=== PATIENT | female | born 2000 | race Caucasian/White ===

== ENCOUNTER 2021-03-04 23:38 | Emergency (ER) | payer MEDICAID ==
[~2021-03-04] VITALS: Ht 162.6 cm; Wt 81.2 kg
[2021-03-05 01:48] LABS: Albumin 3.7 g/dL (3.4-5.0); BUN/Creatinine Ratio 21.6; Calcium 9.2 mg/dL (8.5-10.1); Potassium 4.2 mmol/L (3.5-5.1)
[2021-03-05 01:51] LABS: Bilirubin, Total 0.3 mg/dL (0.2-1.0); Total Protein 7.6 g/dL (6.4-8.2)
[2021-03-05 02:00] VITALS: BP 140/99
[2021-03-05 02:04] LABS: Basophils # (auto) 0 10 ^3/uL (0-0.2); Basophils % (auto) 0.3 % (0.0-2.0); Eosinophils # (auto) 0 10 ^3/uL (0-0.8); Hemoglobin 13.3 g/dL (12.2-16.2); Lymphocytes # (auto) 1.1 10 ^3/uL (0.4-5.4); Lymphocytes % (auto) 14.8 % (10.0-50.0); Mean Corpuscular Hemoglobin 28.1 pg (28.0-32.0); Mean Corpuscular Hgb Conc. 33.2 g/dL (32.0-36.0); Mean Corpuscular Volume 84.5 fL (80.0-100.0); Monocytes # (auto) 0.3 10 ^3/uL (0-1.3); Monocytes % (auto) 3.5 % (0.0-12.0); Neutrophils # (auto) 6.1 10 ^3/uL (1.6-8.6); Neutrophils % (auto) 81.4 % (37.0-80.0); Red Blood Cells 4.73 10^6/uL (4.0-5.20); Red Cell Distribution Width 13.7 % (11.8-14.3); White Blood Cell 7.5 10^3/uL (4.4-10.8)
[2021-03-05] MEDS ORDERED: IBUPROFEN 600 MG TAB PO ONE (02:30)
[2021-03-05] MEDS ORDERED: IBUPROFEN 800 MG TAB PO ONE (02:30)
[2021-03-05] MEDS ORDERED: ACETAMINOPHEN 500 MG TAB PO ONE (02:30)
[2021-03-05] MEDS ORDERED: PROPARACAINE HCL 0.5% OPTH(EYE) SOL 15ML OP ONE (03:00)
[2021-03-05] MEDS ORDERED: TETRACAINE HCL 0.5% OPTH(EYE) SOLN 4ML EACHEYE ONE (03:15)
== END 2021-03-05 03:50 | disposition home or self-care (01) ==
LOC: ER 23:38
DX: S05.02XA Injury of conjunctiva and corneal abrasion without foreign body, left eye, initial encounter (principal); S05.01XA Injury of conjunctiva and corneal abrasion without foreign body, right eye, initial encounter; X58.XXXA Exposure to other specified factors, initial encounter; Y93.89 Activity, other specified; Y92.89 Other specified places as the place of occurrence of the external cause; Y99.8 Other external cause status
CPT/HCPCS: 36415; 70450; 80053; 85025

== ENCOUNTER → 2021-03-16 | Emergency (ER) | payer MEDICAID ==
[~2021-03-16] VITALS: Ht 162.6 cm; Wt 78.5 kg
[2021-03-16 15:18] VITALS: BP 137/94
== END | disposition left against medical advice (07) ==
LOC: ER 14:39
DX: U07.1 COVID-19 (principal); R42 Dizziness and giddiness; R06.02 Shortness of breath; R05.9 Cough, unspecified; R51.9 Headache, unspecified; R11.2 Nausea with vomiting, unspecified; Z53.21 Procedure and treatment not carried out due to patient leaving prior to being seen by health care provider

== ENCOUNTER 2023-12-10 11:50 | Emergency (ER) | payer MEDICAID ==
[~2023-12-10] VITALS: Ht 157.5 cm; Wt 80.5 kg
[2023-12-10 12:44] VITALS: BP 135/77; PULSE 69; RESP 16; TEMP 97.9; O2SAT 96
[2023-12-10 13:39] LABS: Hepatitis B Surface Antibody Positive (Negative)
[2023-12-10 13:51] LABS: Hepatitis B Surface Antigen Negative (Negative)
== END 2023-12-10 13:08 | disposition home or self-care (01) ==
LOC: ER 11:50
DX: S60.012A Contusion of left thumb without damage to nail, initial encounter (principal); Z77.21 Contact with and (suspected) exposure to potentially hazardous body fluids; Z20.5 Contact with and (suspected) exposure to viral hepatitis; W46.0XXA Contact with hypodermic needle, initial encounter; Y93.89 Activity, other specified; Y92.89 Other specified places as the place of occurrence of the external cause; Y99.8 Other external cause status
CPT/HCPCS: 36415; 86703; 86706; 86803; 87340

== ENCOUNTER 2024-03-15 08:43 | Emergency (ER) | payer MEDICAID ==
[~2024-03-15] VITALS: Ht 157.5 cm; Wt 77.3 kg
[2024-03-15 08:59] VITALS: BP 137/91; PULSE 74; RESP 16; O2SAT 98
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
== END 2024-03-15 10:24 | disposition home or self-care (01) ==
LOC: ER 08:43
DX: R51.9 Headache, unspecified (principal); R11.0 Nausea; Z04.1 Encounter for examination and observation following transport accident; V89.2XXA Person injured in unspecified motor-vehicle accident, traffic, initial encounter; Y93.89 Activity, other specified; Y92.89 Other specified places as the place of occurrence of the external cause; Y99.8 Other external cause status
CPT/HCPCS: 70450

== ENCOUNTER 2024-08-22 18:50 | Emergency (ER) | payer MEDICAID ==
[~2024-08-22] VITALS: Ht 157.5 cm; Wt 71.0 kg
[2024-08-22] MEDS: LORazepam 2MG/ML-1ML VIAL IV ONE (19:25)
[2024-08-22] MEDS: ONDANSETRON HCL 4 MG/2 ML VIAL IV ONE (19:25)
[2024-08-22] MEDS: SODIUM CHLORIDE 0.9% 1,000 ML IV ONE (19:26)
--- NOTE | 2024-08-22 20:02 | ED.PDOC ---
HPI Comments PT STATES SHE FEELS VERY SHAKY, ANXIOUS, AND DIZZY AFTER DRINKING A CELSIUS DRINK AND THEN PRE WORK OUT AT 3 PM NAUSEA DENIES CHEST PAIN, REPORTS PALPITATIONS AND SHORTNESS OF BREATH. Chief Complaint: Anxiety Time Seen by MD: 18:58 Primary Care Provider: MARVIN Reviewed Notes: Women'S Swim Coach Notes, Medications, Allergies Allergies: Coded Allergies: NO KNOWN ALLERGIES (Unverified , 03/05/21) Information Source: Patient Mode of Arrival: Wheelchair Past Medical History PAST MEDICAL HISTORY: Denies Surgical History: Denies all surgeries RETAIL SALES ASSOCIATE BILINGUAL History: No Pertinent RETAIL SALES ASSOCIATE BILINGUAL History Family History Family History: Unknown Social History Smoker: Non-Smoker Alcohol: Denies ETOH Use Drugs: Denies Drug Use Lives In: Home Constitutional: denies: chills, diaphoresis, fatigue, fever, malaise, sweats, weakness, others Respiratory: reports: shortness of breath; denies: cough, hemoptysis, orthopnea, SOB at rest, SOB with excertion, stridor, wheezing, others Cardiovascular: reports: dizzy spells, lightheadedness; denies: chest pain, diaphoresis, Dyspnea on exertion, edema, irregular heart beat, left arm pain, pa lpitations, PND, syncope, others Gastrointestinal: denies: abdomen distended, abdominal pain, blood streaked bowels, constipated, diarrhea, dysphagia, difficulty swallowing, hematemesis, melena, nausea, poor appetite, poor fluid intake, rectal bleeding, rectal pain, vomiting, others Genitourinary: denies: abnormal vagina bleeding, burning, dyspareunia, dysuria, flank pain, frequency, hematuria, incontinence, pain, , vagina discharge, urgency, others Neurological: denies: dizziness, fainting, headache, left sided numbness, left sided weakness, numbness, paresthesia, pre-existing deficit, right sided numbness, right sided weakness, seizure, speech problems, tingling, tremors, weakness, others Musculoskeletal: denies: back pain, gout, joint pain, joint swelling, muscle pain, muscle stiffness, neck pain, others Integumetry: denies: bruises, change in color, change in hair/nails, dryness, laceration, lesions, lumps, rash, wounds, others Allergic/Immunocompromised: denies: Difficulty Healing, Frequent Infections, Hives, Itching, others Hematologic/Lymphatic: denies: anemia, blood clots, easy bleeding, easy bruising, swollen glands, others Endocrine: denies: excessive hunger, excessive sweating, excessive thirst, excessive urination, flushing, intolerance to cold, intolerance to heat, unexplained weight gain, unexplained weight loss, others Psychiatric: denies: anxiety, bipolar disorder, depression, hopeless, panic disorder, schizophrenia, sleepless, suicidal, others Physical Exam General Appearance: No Apparent Distress, Normal HEENT: Pharynx Normal Neck: Full Range of Motion, Non-Tender Respiratory: Lungs Clear, No Accessory Muscle Use, No Respiratory Distress, Normal Breath Sounds Cardiovascular: No Edema, No JVD, No Murmur, No Gallop, Normal Peripheral Pulses, Tachycardia Breast Exam: Deferred Gastrointestinal: Non Tender, Soft Genitalia: Deferred Pelvic: Deferred Rectal: Deferred Extremities: Normal capillary refill, Normal inspection, Normal range of motion, Non-tender, No pedal edema Musculoskeletal : Apperance: Normal Neurologic: Alert, brineyard supervisor II-XII nml as Tested, No Motor Deficits, Normal Affect, Normal Mood, No Sensory Deficits Cerebellar Function: Normal Reflexes: Normal Skin: Dry, Normal Color, Warm Lymphatic: No Adenopathy Was a procedure done? Was a procedure done?: No CP Differential Dx Differential Diagnosis: Hyperventilation, PSVT, Sinus Tachycardia X-Ray, Labs, Meds, VS Vital Signs Date Time Temp Pulse Resp B/P (MAP) Pulse Ox O2 Delivery O2 Flow Rate FiO2 08/22/24 18:55 98.0 107 24 149/93 (111) 100 98.0 Current Medications Medications (Trade) Dose Ordered Sig/Shyann Route Start Time Stop Time Status Last Admin Sodium Chloride 1,000 ml @ 1,000 mls/hr Q1H ONCE IV 08/22/24 19:00 08/22/24 19:59 08/22/24 19:26 Ondansetron HCl (Zofran) 4 mg ONCE ONCE IV 08/22/24 19:00 08/22/24 19:04 DC 08/22/24 19:25 Lorazepam (Ativan Inj) 0.5 mg ONCE ONCE IV 08/22/24 19:15 08/22/24 19:16 DC 08/22/24 19:25 X-Ray, Labs, Meds, VS Comment PATIENT GIVEN 1 L OF FLUIDS 0.5 MG OF ATIVAN AND 4 MG OF ZOFRAN. HEART RATE UNDER 100 PATIENT REPORTS IMPROVEMENT SHE IS REQUESTING DISCHARGE AT THIS TIME. ADVISED TO AVOID PRE WORKOUT AND C AT THE SAME TIME ADVISED TO CONSIDER A NATURAL PRE WORKOUT WITHOUT THE HIGH DOSE AMOUNT OF CAFFEINE. ADVISED TO REST INCREASE P.O. FLUIDS WITH ELECTROLYTES. ADVISED TO FOLLOW UP WITH HER PCP IN 2- 3 DAYS NECESSARY. ER RETURN PRECAUTIONS GIVEN PATIENT INDICATES UNDERSTANDING AND AGREES WITH DISCHARGE PLAN OF CARE. Time of 1ST Reevaluation: 18:30 Reevaluation 1ST: Unchanged Time of 2ND Reevaluation: 19:59 Reevaluation 2ND: Improved Patient Education/Counseling: Diagnosis, Treatment, Prognosis, Need For Follow Up Family Education/Counseling: Diagnosis, Treatment, Prognosis, Need For Follow Up Departure 1 Departure Time of Disposition: 20:00 Impression: Primary Impression: Adverse effect of caffeine, initial encounter Disposition: 01 HOME / SELF CARE / HOMELESS Condition: Stable Discharged With: Relative (Father) Critical Care Note Critical Care Time?: No Stability Stability form required: No Heart Score Heart Score: Heart Score Response (Comments) Value History Slightly Suspicious 0 EKG N/A 0 Age <45 0 Risk Factors N/A 0 Troponin N/A 0 Total 0 VIJAY DAVIS Aug 22, 2024 20:02
[2024-08-22 20:15] VITALS: BP 139/77; PULSE 72; RESP 13; TEMP 98.2; O2SAT 100
--- NOTE | 2024-08-27 12:39 | ECG ---
[facility] Test Date: 2024-08-22 Test Time: 19:11:42 Pat Name: DIE[address] L[address] Department: ER Room: Gender: F Warehouse Logistics Coordinator: MERCY : 2000 Requested By: VIJAY DAVIS Order Number: [id number] Reading MD: Dudley Garsia Measurements Intervals [place] Rate: 110 P: 70 AL: 152 QRS: 89 QRSD: 93 T: 27 QT: 341 QTc: 462 Interpretive Statements Sinus tachycardia Baseline wander in lead(s) II,aVF Electronically Signed On 08-27-2024 17:27:39 PDT by Dudley Garsia Please click the below link to view image of tracing.
== END 2024-08-22 20:25 | disposition home or self-care (01) ==
LOC: ER 18:55
DX: F41.9 Anxiety disorder, unspecified (principal); T43.615A Adverse effect of caffeine, initial encounter; X58.XXXA Exposure to other specified factors, initial encounter
CPT/HCPCS: 96361; 96374; 96375; 99284; J2060; J2405; J7030; 93005